=== PATIENT | female | born 1975 | race Caucasian/White ===

== ENCOUNTER 2025-02-03 09:20 | Outpatient (CLI) | payer MEDICAID, SELFPAY ==
--- NOTE | 2025-02-03 10:58 | P.ANES_ITS ---
Anesthesia Charges Start Date/Time Anesthesia Start Date: 02/03/25 Anesthesia Start Time: 10:21 Stop Date/Time Anesthesia Stop Date: 02/03/25 Anesthesia Stop Time: 11:00 Coding CPT Codes CPT Codes: VIVI LWR INTST NDSC NOS - [id number] ([id number]) P2 - PATIENT W/MILD SYST DISEASE, QK - STEAM BRUSH OPERATOR 2-4 CNCRNT ANES PROC, QX - LAMINATOR SVC W/ MD MED DIRECTION
--- NOTE | 2025-02-03 10:58 | W.ANESCHARGE ---
Anesthesia Charges Start Date/Time Anesthesia Start Date: 02/03/25 Anesthesia Start Time: 10:21 Stop Date/Time Anesthesia Stop Date: 02/03/25 Anesthesia Stop Time: 11:00 Coding CPT Codes CPT Codes: VIVI LWR INTST NDSC NOS - [id number] ([id number]) P2 - PATIENT W/MILD SYST DISEASE, QK - PRESCHOOL ADVISER 2-4 CNCRNT ANES PROC, QX - MONITORING MANAGER SVC W/ MD MED DIRECTION
--- NOTE | 2025-02-03 11:39 | P.ANES_ITS ---
Anesthesia Charges Start Date/Time Anesthesia Start Date: 02/03/25 Anesthesia Start Time: 10:21 Stop Date/Time Anesthesia Stop Date: 02/03/25 Anesthesia Stop Time: 11:00 Coding CPT Codes CPT Codes: ANES UPR LWR GI NDSC PX - 52683 ([id number]) QK - STRAPPER 2-4 CNCRNT ANES PROC, QX - DIET CLERK SVC W/ MD MED DIRECTION, P2 - PATIENT W/MILD SYST DISEASE
--- NOTE | 2025-02-03 11:39 | W.ANESCHARGE ---
Anesthesia Charges Start Date/Time Anesthesia Start Date: 02/03/25 Anesthesia Start Time: 10:21 Stop Date/Time Anesthesia Stop Date: 02/03/25 Anesthesia Stop Time: 11:00 Coding CPT Codes CPT Codes: ANES UPR LWR GI NDSC PX - [id number] ([id number]) QK - SENSITIZED PAPER TESTER 2-4 CNCRNT ANES PROC, QX - [place] ADMINISTRATIVE LAW JUDGE SVC W/ MD MED DIRECTION, P2 - PATIENT W/MILD SYST DISEASE
--- NOTE | 2025-02-03 12:45 | P.ANES_ITS ---
Anesthesia Charges Start Date/Time Anesthesia Start Date: 02/03/25 Anesthesia Start Time: 10:21 Stop Date/Time Anesthesia Stop Date: 02/03/25 Anesthesia Stop Time: 11:00 Coding CPT Codes CPT Codes: ANES UPR GI NDSC PX NOS - [id number] ([id number]) P2 - PATIENT W/MILD SYST DISEASE, QK - [employer] CONSULTANT 2-4 CNCRNT ANES PROC, QX - TILE MOLDER HAND SVC W/ MD MED DIRECTION
--- NOTE | 2025-02-03 12:45 | W.ANESCHARGE ---
Anesthesia Charges Start Date/Time Anesthesia Start Date: 02/03/25 Anesthesia Start Time: 10:21 Stop Date/Time Anesthesia Stop Date: 02/03/25 Anesthesia Stop Time: 11:00 Coding CPT Codes CPT Codes: ANES UPR GI NDSC PX NOS - [id number] ([id number]) P2 - PATIENT W/MILD SYST DISEASE, QK - FIELD RING ASSEMBLER 2-4 CNCRNT ANES PROC, QX - POKER MACHINE ATTENDANT SVC W/ MD MED DIRECTION
== END 2025-02-03 09:21 | disposition home or self-care (01) ==
PROVIDERS: Visit Provider Internal Medicine Gastroenterology
DX: Z12.11 Encounter for screening for malignant neoplasm of colon (principal); D50.9 Iron deficiency anemia, unspecified; D12.2 Benign neoplasm of ascending colon
CPT/HCPCS: 00731; 00811; 00813; 43239; 45385; 88305; T1013; J2704; J3490